=== PATIENT | female | born 1965 | race Caucasian/White ===

== ENCOUNTER 2023-12-30 05:26 | Emergency (ER) | payer BC, SELFPAY ==
[2023-12-30 05:28] VITALS: BP 162/94
--- NOTE | 2023-12-30 06:34 | EDRN ---
Ice pack applied on patients elbow and propped up with pillow
[2023-12-30] MEDS: PERCOCET 5/325 1 TABLET PO (06:47)
--- NOTE | 2023-12-30 06:49 | ED.MUSCINJ ---
Addendum entered and electronically signed by Dmitry Green DO 12/30/23 09:50:
X-ray report noted small radial head fracture patient was immobilized, patient called at home notified of the official report, she has an appointment today with orthopedics in the afternoon encouraged her to keep the appointment
Original Note:
HPI-Injury
General
Chief Complaint: Musculo-Skeletal Complaint
Source: patient and spouse
Exam Limitations: none
Time Seen by Provider: 12/30/23 06:34
Nursing documentation reviewed up to this point in time: agreed with
Travel History
Have you had any contact with someone who has COVID-19?: No
Do you have any symptoms of coronavirus? Fever > 100 degrees, chills, cough, shortness of breath, sore throat, loss of taste or smell, muscle aches, or headache?: No
History of Present Illness-Injury
Is this injury a work related problem?: No
Is pt an associate of [facility]?: No
Initial Injury comments:
58-year-old female left elbow pain fell a week ago playing basketball right on her left elbow moderate pain worse with movement, fell again last evening twisted her right ankle moderately fell back onto her left elbow using some ibuprofen for
swelling and pain was up most the night of pain no numbness or tingling no open wounds has some bruising she is able to walk on her ankle without much difficulty no head strike no neck pain no abdominal pain
Past History
Past History
ED Past Medical History: None
Social History
Tobacco: Non-smoker
Alcohol: None
Drug: None
Personal:
Living: with family
Employment: Employed
Review of Systems
Review of Systems
All Other Systems: Not applicable
Respiratory: Reports no symptoms
Cardiac: Reports no symptoms
ABD/GI: Reports no symptoms
Musculoskeletal: Reports joint pain
Neurological: Denies headache
Hematologic/Lymphatic: Reports bruising (About the elbow)
Phy Exam
Physical Exam
Physical Exam:
Physical Exam
General: no apparent distress, not acutely ill
Neck: No tongue bite no posterior neck
Lungs: no acute respiratory distress.
Neuro: alert and oriented. no focal neurological deficits
Skin: no rash
Psychiatric: well kept. interactive and cooperative
Extremities: Left elbow moderate pain with range of motion small amount of swelling some ecchymoses about the radial head strong radial pulse, bilateral ankles nontender
Injury Course
Orders/Labs/Results
Orders:
Orders
12/30/23 05:34
Elbow, Left, 2 View [CR Elbow - Left Min 2 View] Urgent
Comment:
Reason For Exam: fall
12/30/23 06:44
Sling Left-Treatment ONCE
Oxycodone/Acetaminophen [Percocet 5/325] 1 tablet .ROUTE .STK-MED ONE
12/30/23 06:45
Oxycodone/Acetaminophen [Percocet 5/325] 1 tablet PO NOW STA
MDM/Problems Addressed
Differential Diagnosis Includes:
Contusion fracture strain strain ligamentous injury
MDM/Problems Addressed:
Elbow pain
*Radiology
Radiology exam reviewed: preliminary read by ED provider
*Pulse Oximetry
Patient hypoxic: no
*Critical Care Note
Total Time (30-74mins, 75-104mins- exclusive of procedures): Not Applicable
Update Note
Update Note:
X-ray noted no obvious fracture no fat pad seen formal report pending, patient does have pain will mobilize refer nonurgently to orthopedics
ED Attending Note
-
Portions of this chart may have been created with voice recognition software.� Occasional wrong word or��sound alike� substitutions may have occurred due to the inherent limitations of voice recognition software.
Discharge Plan
Departure
Referrals:
PRIVATE,PHYSICIAN [Family Provider] -
Interventions
Interventions:
*Risk Screen - Suicide Last Done: 12/30/23 05:28
*Neglect/Abuse Screening Last Done: 12/30/23 05:28
ED- Fall Risk Assessment Last Done: 12/30/23 06:33
ED-Musculoskeletal Assessment Last Done: 12/30/23 06:33
Discharge Date and Time
Print Language: [id number]
== END 2023-12-30 07:13 | disposition home or self-care (01) ==
LOC: EMR 05:26
PROVIDERS: EMERGENCY PHYSICIAN Emergency Medicine
DX: S50.02XA Contusion of left elbow, initial encounter (principal); X50.1XXA Overexertion from prolonged static or awkward postures, initial encounter
CPT/HCPCS: 99283; 73070

== ENCOUNTER → 2024-04-09 07:53 | Outpatient (REF) | payer BC, SELFPAY | LOC: WDC 07:53 | PROVIDERS: ATTENDING PHYSICIAN Family Medicine | DX: Z12.31 Encounter for screening mammogram for malignant neoplasm of breast (principal) | CPT/HCPCS: 77063; 77067 ==